=== PATIENT | female | born 1985 | race Caucasian/White ===

== ENCOUNTER 2021-03-23 20:27 | Emergency (ER) | payer MEDICAID ==
[~2021-03-23] VITALS: Ht 152.4 cm; Wt 63.5 kg
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
[2021-03-23] MEDS ORDERED: KETOROLAC TROMETHAMINE INJ 30 MG/ML VIAL ONE (20:59)
[2021-03-23] MEDS ORDERED: OXYMETAZOLINE HCL NASAL SPRAY 30 ML BOTTLE NS ONE ×2 (20:59→21:00)
[2021-03-23] MEDS ORDERED: KETOROLAC TROMETHAMINE INJ 30 MG/ML VIAL IM ONE (21:00)
[2021-03-23] MEDS ORDERED: PSEU120T83 PO (21:42)
[2021-03-23] MEDS ORDERED: IBUP-1957 PO (21:42)
--- NOTE | 2021-03-23 22:03 | NUR ---
Patient discharged to home in stable condition. Written and verbal after care instructions given. Patient verbalizes understanding of instruction.
[2021-03-23 22:17] VITALS: BP 121/76
== END 2021-03-23 22:18 | disposition home or self-care (01) ==
LOC: ER 20:27
DX: J34.89 Other specified disorders of nose and nasal sinuses (principal); R22.0 Localized swelling, mass and lump, head; W50.0XXA Accidental hit or strike by another person, initial encounter; Y93.89 Activity, other specified; Y92.89 Other specified places as the place of occurrence of the external cause; Y99.8 Other external cause status
CPT/HCPCS: 70486; 96372; 99284; J1885